=== PATIENT | female | born 1930 | race Caucasian/White ===

== ENCOUNTER 2017-10-31 17:40 | Inpatient (IN) | payer MEDICARE ==
[~2017-10-31] VITALS: Ht 149.8 cm; Wt 62.1 kg
--- NOTE | ~2017-10-31 | PR ---
[place], [place] PROGRESS NOTE [id number] UNIT #: [id number] ROOM: 311 DOCTOR: KERMIT NGUYỄN MD BIRTHDATE: [birth year] DOS: 11/05/2017 CHIEF COMPLAINT: "Oh Hi, Thanks for coming." SUMMARY OF THE VISIT: The patient was interviewed as she rested in bed. She awoke easily and engaged readily in superficial bright conversation. She reported no problems. She was at times rather short with her responses, but not necessarily nasty. She seems to be improving and tolerating the medication regimen well. MENTAL STATUS: She is alert and oriented with time gaps. Mood seems trending towards euthymia. Affect is more appropriate. There is no diallo or hypomania. There are no overt auditory or visual hallucinations. There is no delusions or paranoia. Short-term memory is exceedingly poor. PLAN: I will maintain her current psychotropic regimen, support and monitor, engage in individual and hendricks milieu therapy, returning then to the least restrictive environment when stable. KERMIT NGUYỄN MD CM:PNTRANS [phone] KERMIT NGUYỄN MD 11/05/172146 interface
--- NOTE | ~2017-10-31 | PR ---
[place], [place] PROGRESS NOTE NAME: OPHELIA LU UNIT #: [id number] ROOM: 311 DOCTOR: KERMIT NGUYỄN MD BIRTHDATE: [birth year] DOS: 11/03/2017 CHIEF COMPLAINT: "Oh honey I love it here. Thank you for everything you are doing." SUMMARY OF THE VISIT: The patient was interviewed as she sat in the dining area. She was pleasant and bright upon approach. She has been in general bright and pleasant during the morning, but nurses report a totally different person in the late afternoon beginning of the evening, she becomes increasingly more volatile, irritable and profane and was verbally abusive to staff, threatening them and refusing to take her medications. MENTAL STATUS: She is alert and oriented to person, possibly place, but not time. Mood this morning was fairly euthymic. Affect appropriate. No diallo or hypomania or psychosis is noted. She does process slowly and short term memory is poor. PLAN: Her valproic acid level is low therapeutic at 64.9. I will go ahead and change the time of the Depakote, though and move the 500 mg sprinkles from bedtime to 1800. I will increase Namenda from 5 mg b.i.d. to 10 mg in the morning and 5 mg at bedtime, engage in individual and hendricks milieu activity, returning then to the least restrictive environment when stable. KERMIT NGUYỄN MD CM:PNTRANS 2 3 KERMIT NGUYỄN MD 11/03/17933 interface
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
--- NOTE | ~2017-10-31 | PR ---
[place], [place] PROGRESS NOTE NAME: OPHELIA LU UNIT #: [id number] ROOM: 311 DOCTOR: KERMIT NGUYỄN MD BIRTHDATE: [birth year] DOS: 11/06/2017 CHIEF COMPLAINT: "No, I do not want any breakfast." SUMMARY OF THE VISIT: The patient was interviewed as she rested in bed. She seemed very somnolent at first, but did awake with very little prompting. She reported that she did not feel like getting up that she was still tired and she did not want breakfast. Nurses report that she has been a little bit more sluggish and somnolence of late and has had some issues with diarrhea. MENTAL STATUS: She is alert and oriented to person, place, but not necessarily time. Mood does seem to be trending towards euthymia. Affect is more appropriate. There is no diallo or hypomania. There are no auditory or visual hallucinations. No delusions, no paranoia. Short term memory remains poor. PLAN: I will check a comprehensive metabolic panel today. I will also check a valproic acid level in the a.m. to ensure that it is therapeutic and is not drifted too high. We will continue to engage in individual and hendricks milieu activities, returning to the least restrictive environment when psychiatrically stable. KERMIT NGUYỄN MD CM:PNTRANS [id number] KERMIT NGUYỄN MD 11/06/17 0939 interface
--- NOTE | ~2017-10-31 | DS ---
[place], [place] DISCHARGE SUMMARY [id number] UN[facility] #: [id number] ROOM: 311 DOCTOR: KERMIT NGUYỄN MD BIRTHDATE: [birth year] DOS: 11/06/2017 CHIEF COMPLAINT: "I don't know why I was sent here, I guess I have been bad." HISTORY OF PRESENT ILLNESS: This is an 87-year-old white female known to me from her stay at the [facility], an assisted living facility, where she has resided on their memory care unit. The patient has become increasingly verbally and physically aggressive there. She has been hitting, kicking and has been combative, both with staff and recently with residents. Her behavior has become problematic. Attempts to redirect her and adjust her medicines have not been successful and she has put herself and other residents at significant risk. She was admitted now to rule out any organic factors, to stabilize on medication, to engage in individual and hendricks milieu returning then to the least restrictive environment when stable. PAST MEDICAL HISTORY: Remarkable for coronary artery disease, hypertension, hyperlipidemia, peripheral neuropathy, diabetes, history of a CABG and a right mastectomy. SUMMARY OF HOSPITAL COURSE: The patient was admitted to the unit where she was started on Exelon patch and the dose was increased from 4.6 to 9.5 and ultimately to 13.3 mg daily. Namenda was started at 5 mg a day and it too was gradually increased to its maximum dose of 10 mg twice a day, Lexapro was discontinued having felt that this was not necessary at this time. Given the fact that she was having significant mood lability at the time, she was started on Depakote and tolerated the Depakote extremely well. This did give her significant benefit in that it stopped her mood lability. She was neither verbally or physically aggressive and was ready to be discharged; however, the patient was developing some issues with diarrhea and I was set to check comprehensive metabolic panel and valproic acid level. Shortly, thereafter, the patient began to complain of significant chest pain and also had an irregular heartbeat. The hospitalists were consulted and they felt at this point, she needed to be discharged and admitted to the medical floor as soon as possible. MENTAL STATUS AT DISCHARGE: The patient was alert and oriented to person, possibly place, not time. Mood was significantly trending towards euthymia. Affect was more appropriate. There was no hypomania or diallo. There were no auditory or visual hallucinations. No delusions, no paranoia. Short term memory had gaps, otherwise she was intact. FINAL DIAGNOSIS AT DISCHARGE: Intermittent explosive disorder and Alzheimer dementia. DISPOSITION: The patient will be under the care of the hospitalist for her medical issues, they can consult me if need be, although the patient was almost ready for discharge back into the assisted living facility. [place], [place] DISCHARGE SUMMARY NAME: OPHELIA LU UNIT #: [id number] ROOM: [facility] DOCTOR: KERMIT NGUYỄN MD BIRTHDATE: [birth year] KERMIT NGUYỄN MD CM:DISCHARG [id number] KERMIT NGUYỄN MD 11/06/17 0946 interface
--- NOTE | ~2017-10-31 | PR ---
[place], [place] PROGRESS NOTE NAME: OPHELIA LU UNIT #: [id number] ROOM: 311 DOCTOR: KERMIT NGUYỄN MD BIRTHDATE: [birth year] DOS: 11/04/2017 CHIEF COMPLAINT: "Oh yes, I would like to be helped down for breakfast." SUMMARY OF THE VISIT: The patient was interviewed as she was resting quietly in bed. As I approached her, she engaged readily in conversation. I did offer to help her come down for breakfast and she acknowledge me and said she would like to do that. Of note, the aides had tried on 3 separate occasions to get her down to breakfast and all 3 occasions she refused them stating she would rather leave here than have breakfast and she did not know why she was here. Nurses report she continues to have episodic bouts of agitation and aggression, but overall there is a trend in improvement and she does seem to redirect more readily. MENTAL STATUS: She is alert and oriented to person. She does realize she is in the hospital, but not where and she is certainly not oriented to place. Mood does still seem to be labile, but improving. There is no gross psychosis. Short term memory remains poor. PLAN: I will go ahead and increase her Namenda to its maximum dose of 10 mg b.i.d., continue to support and monitor, engage in individual and hendricks milieu activity, returning home when stable. KERMIT NGUYỄN MD CM:PNTRANS [phone] [id number] KERMIT NGUYỄN MD 11/04/17 0922 interface
--- NOTE | ~2017-10-31 | PR ---
[place], [place] PROGRESS NOTE [id number] UNIT #: [id number] ROOM: 309 DOCTOR: KERMIT NGUYỄN MD BIRTHDATE: [birth year] DOS: 11/02/2017 CHIEF COMPLAINT: "Oh, good morning honey, how are you?" SUMMARY OF THE VISIT: The patient was interviewed as she was ambulating into the dining room and I followed her in there and helped us find a seat. She was bright and pleasant and smiled readily. She was confused, however, and could not tell me how long she has been here, nor does she remember the name of the place. Nurses report that overall she has been much more pleasant and cooperative. There have been limited outbursts. She is tolerating the current medication regimen well. MENTAL STATUS: She is alert and oriented to person, not to place or time. Mood seems fairly euthymic. Affect appropriate. There are no symptoms of diallo or hypomania. There are no overt auditory or visual hallucinations. No delusions, no paranoia. Short term memory is exceedingly poor. PLAN: I will increase the Namenda from 5 mg a day to 5 mg twice a day with a target dose of 10 mg twice a day in mind. I will maximize out the Exelon patch from 9.5 to 13.3 mg daily and check a valproic acid level in the morning to ensure that it is therapeutic, engage in individual and hendricks milieu activity, returning to the least restrictive environment when psychiatrically stable. KERMIT NGUYỄN MD CM:PNTRANS 8 KERMIT NGUYỄN MD 11/02/17938 interface
[2017-10-31] MEDS ORDERED: VITAMIN D-32000 UNIT PO (18:12)
[2017-10-31] MEDS ORDERED: LANTUS SOL100 UNIT/1 SC (18:13)
[2017-10-31] MEDS ORDERED: HUMALOG100 UNIT/2 SQ (18:14)
[2017-10-31] MEDS ORDERED: CALCIUM CARB500 MG PO (18:15)
[2017-10-31] MEDS ORDERED: ATIVAN0.5 MG PO (18:16)
[2017-10-31] MEDS ORDERED: ASPIR LOW81 MG PO (18:17)
[2017-10-31] MEDS ORDERED: MAXITROL OPHTH3.5 GM OS (18:17)
[2017-10-31] MEDS ORDERED: CYMBALTA60 MG PO (18:18)
[2017-10-31] MEDS ORDERED: FENOFIBRATE54 MG PO (18:19)
[2017-10-31] MEDS ORDERED: METFORMIN1000 MG PO (18:21)
[2017-10-31] MEDS ORDERED: OXYBUTYNIN5 MG PO (18:22)
[2017-10-31] MEDS ORDERED: LOPRESSOR25 MG PO (18:22)
[2017-10-31] MEDS ORDERED: MIRALAX POWDER17 G1 PO (18:23)
[2017-10-31] MEDS ORDERED: GABAPENTIN100 M2 PO (18:25)
[2017-10-31] MEDS ORDERED: NEURONTIN300 MG PO (18:25)
[2017-10-31 20:00] VITALS: BP 167/85
[2017-10-31 20:15] VITALS: BP 167/85
[2017-10-31] MEDS ORDERED: CEPHALEXIN500 M1 PO (22:55)
[2017-10-31] MEDS ORDERED: VITAMIN D50000 UNIT PO (22:58)
[2017-10-31] MEDS ORDERED: LEXAPRO5 M1 PO (23:13)
[2017-11-01 06:00] VITALS: BP 127/64
[2017-11-01 07:01] LABS: BASO % 0.4 % (0.0-1.0); EOS # 0.2 10*3/uL (0.0-0.4); EOS % 2.8 % (1.0-4.0); HEMATOCRIT 46.3 % (37.0-47.0); HEMOGLOBIN 14.4 g/dl (12.0-16.0); LYMPH # 2.1 10*3/uL (1.3-4.4); LYMPH % 26.6 % (27.0-41.0); MEAN CELL VOLUME 89.7 fl (81.0-99.0); MEAN CORPUSCULAR HGB 27.9 pg (27.0-31.0); MEAN CORPUSCULAR HGB CONC 31.1 g/dl (33.0-37.0); MEAN PLATELET VOLUME 13.1 fl (9.6-12.3); MONO # 0.5 10*3/uL (0.1-1.0); MONO % 6.1 % (3.0-9.0); PLATELET COUNT AUTOMATED 214 10*3/uL (130-400); RED BLOOD COUNT 5.16 10*6/uL (4.10-5.10); RED CELL DISTRI WIDTH 14.7 % (0-14.5); WHITE BLOOD COUNT 7.9 10*3/uL (4.8-10.8)
[2017-11-01 07:28] VITALS: BP 107/65
[2017-11-01 07:30] LABS: ALBUMIN 3.5 gm/dl (3.1-4.5); ALKALINE PHOSPHATASE 52 U/L (45-117); BUN 23 mg/dl (7-24); CHLORIDE 99 mmol/L (98-107); CHOLESTEROL 248 mg/dL (<200); CREATININE 1.02 mg/dL (0.55-1.02); HDL CHOLESTEROL 58 mg/dl (40-60); LDL CHOLESTEROL 165 mg/dL (9-159); POTASSIUM 4.3 mmol/L (3.5-5.1); SGOT/AST 16 IU/L (3-35); SGPT/ALT 18 U/L (12-78); SODIUM 140 mmol/L (136-145); TOTAL PROTEIN 7.4 gm/dL (6.4-8.2); TRIGLYCERIDES 124 mg/dl (<150); VLDL CHOLESTEROL 25 mg/dL (6-40)
[2017-11-01 12:18] LABS: VITAMIN D, 25-HYDROXY 35.2 ng/mL (30-100)
[2017-11-02 07:34] VITALS: BP 110/74
[2017-11-02 13:45] VITALS: BP 100/62
[2017-11-02 17:19] VITALS: BP 133/88
[2017-11-02 20:48] VITALS: BP 110/70
[2017-11-03 06:30] VITALS: BP 100/70
[2017-11-03 07:41] VITALS: BP 108/74
[2017-11-03 08:12] LABS: BILIRUBIN NEGATIVE (NEGATIVE); BLOOD NEGATIVE (NEGATIVE); CLARITY CLEAR (CLEAR); COLOR YELLOW (YELLOW); GLUCOSE NEGATIVE (NEGATIVE); KETONE NEGATIVE (NEGATIVE); LEUKO ESTERASE NEGATIVE (NEGATIVE); NITRITE NEGATIVE (NEGATIVE); SPECIFIC GRAVITY <= 1.005 (1.005-1.030)
[2017-11-03 08:36] LABS: BACTERIA 1+; WBC 0-2 wbc/hpf (0-5)
[2017-11-03 13:30] VITALS: BP 102/60
[2017-11-03 15:05] LABS: NEURONTIN (GABAPENTIN) 9.7 ug/mL (4.0-16.0)
[2017-11-03 17:35] VITALS: BP 128/78
[2017-11-04 08:12] VITALS: BP 125/73
[2017-11-04 20:00] VITALS: BP 121/80
[2017-11-05 08:00] VITALS: BP 112/78
[2017-11-05 20:00] VITALS: BP 115/67
[2017-11-06 09:06] VITALS: BP 118/64
[2017-11-06] MEDS ORDERED: DIVALPROEX SOD125 M1 PO ×2 (09:18)
[2017-11-06] MEDS ORDERED: EXELON13.3 MG/21 T (09:18)
[2017-11-06] MEDS ORDERED: MEMANTINE HCL10 MG PO (09:18)
== END 2017-11-06 09:40 | disposition short-term general hospital (02) | DRG 883 ==
LOC: 3N 17:40
PROVIDERS: Psychiatry & Neurology Psychiatry
DX: F63.81 Intermittent explosive disorder (principal); E11.42 Type 2 diabetes mellitus with diabetic polyneuropathy; G30.9 Alzheimer's disease, unspecified; F02.80 Dementia in other diseases classified elsewhere, unspecified severity, without behavioral disturbance, psychotic disturbance, mood disturbance, and anxiety; F33.9 Major depressive disorder, recurrent, unspecified; F23 Brief psychotic disorder; I25.10 Atherosclerotic heart disease of native coronary artery without angina pectoris; E78.5 Hyperlipidemia, unspecified; I10 Essential (primary) hypertension; E78.2 Mixed hyperlipidemia; Z95.1 Presence of aortocoronary bypass graft; Z90.11 Acquired absence of right breast and nipple; Z79.4 Long term (current) use of insulin; Z87.891 Personal history of nicotine dependence; Z90.710 Acquired absence of both cervix and uterus; Z95.2 Presence of prosthetic heart valve; Z88.0 Allergy status to penicillin; Z88.8 Allergy status to other drugs, medicaments and biological substances; Z79.82 Long term (current) use of aspirin; Z79.84 Long term (current) use of oral hypoglycemic drugs

== ENCOUNTER 2017-11-06 09:50 | Inpatient (IN) | payer MEDICARE ==
[~2017-11-06] VITALS: Ht 163 cm; Wt 63.0 kg
--- NOTE | ~2017-11-06 | CON ---
[place], [place] REPORT OF CONSULTATION NAME: OPHELIA LU UNIT #: [id number] ROOM: 524 DOCTOR: KERMIT NGUYỄN MD BIRTHDATE: [birth year] DOS: 11/08/2017 CHIEF COMPLAINT: "I ate a good lunch. I am hoping I can go home today." HISTORY OF PRESENT ILLNESS: This is an 87-year-old white female known to me from her stay at the [facility] as well as the stay at the [facility]. 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 She was subsequently transferred off the U to the medical floor for further monitoring and evaluation. From a psychiatric standpoint, the patient had been significantly trending towards improvement and her outbursts and agitation were becoming less and less frequent and less intense. PAST MEDICAL HISTORY: Remarkable for coronary artery disease, hypertension, hyperlipidemia, neuropathy, diabetes, history of right mastectomy. MENTAL STATUS: The patient is alert and oriented to person, possibly place, but not time. Mood does seem to be fairly euthymic and she joked with me and engaged readily in conversation. There was no hypomania or diallo. There were no overt auditory or visual hallucinations. No delusions, no paranoia. She does process at times slowly and at times exhibits short term memory issues, but overall, there has been a trend in improvement. DIAGNOSES: Intermittent explosive disorder and Alzheimer's dementia. PLAN: At this point, I see no reason to make any medication adjustments as she does seem to have improved. From my standpoint, she can be discharged directly back to [facility] when medically stable. KERMIT NGUYỄN MD CM:CONSTR:REPORT OF CONSULTATION 1311 11/08/17 1319 interface
[2017-11-06 09:45] VITALS: BP 152/98
[2017-11-06 09:50] VITALS: BP 152/98
[~2017-11-06 09:50] MED LIST: ASPIR LOW81 MG PO; ATIVAN0.5 MG PO; CALCIUM CARB500 MG PO; CEPHALEXIN500 M1 PO; CYMBALTA60 MG PO; DIVALPROEX SOD125 M1 PO; EXELON13.3 MG/21 T; FENOFIBRATE54 MG PO; GABAPENTIN100 M2 PO; HUMALOG100 UNIT/2 SQ; LANTUS SOL100 UNIT/1 SC; LEXAPRO5 M1 PO; LOPRESSOR25 MG PO; MAXITROL OPHTH3.5 GM OS; MEMANTINE HCL10 MG PO; METFORMIN1000 MG PO; MIRALAX POWDER17 G1 PO; NEURONTIN300 MG PO; OXYBUTYNIN5 MG PO; VITAMIN D-32000 UNIT PO; VITAMIN D50000 UNIT PO
[2017-11-06 13:26] LABS: BASO % 0.1 % (0.0-1.0); HEMATOCRIT 45.1 % (37.0-47.0); HEMOGLOBIN 14.2 g/dl (12.0-16.0); LYMPH # 0.8 10*3/uL (1.3-4.4); LYMPH % 10.6 % (27.0-41.0); MEAN CORPUSCULAR HGB 28.3 pg (27.0-31.0); MEAN CORPUSCULAR HGB CONC 31.5 g/dl (33.0-37.0); MONO # 0.3 10*3/uL (0.1-1.0); MONO % 3.4 % (3.0-9.0); NEUT # 6.3 10*3/uL (2.3-7.9); NEUT % 84.6 % (47.0-73.0); PLATELET COUNT AUTOMATED 181 10*3/uL (130-400); RED BLOOD COUNT 5.01 10*6/uL (4.10-5.10); RED CELL DISTRI WIDTH 14.7 % (0-14.5); WHITE BLOOD COUNT 7.4 10*3/uL (4.8-10.8)
[2017-11-06 13:35] LABS: ACT PARTIAL THROMBO TIME 22.6 SECONDS (20.8-31.5)
[2017-11-06 13:45] LABS: ALBUMIN 3.3 gm/dl (3.1-4.5); CREATININE 1.2 mg/dL (0.55-1.02); POTASSIUM 4.5 mmol/L (3.5-5.1); TOTAL PROTEIN 6.9 gm/dL (6.4-8.2)
[2017-11-06 13:54] LABS: VALPROIC ACID (DEPAKENE) 61.2 ug/ml (50-100)
[2017-11-06 16:00] VITALS: BP 148/82
[2017-11-06 20:00] VITALS: BP 110/53
[2017-11-07] VITALS: BP 110/54
[2017-11-07 06:59] LABS: BASO % 0.7 % (0.0-1.0); EOS # 0.1 10*3/uL (0.0-0.4); EOS % 1.3 % (1.0-4.0); HEMATOCRIT 41.4 % (37.0-47.0); HEMOGLOBIN 12.8 g/dl (12.0-16.0); LYMPH # 1.5 10*3/uL (1.3-4.4); MEAN CELL VOLUME 91.2 fl (81.0-99.0); MEAN CORPUSCULAR HGB 28.2 pg (27.0-31.0); MEAN CORPUSCULAR HGB CONC 30.9 g/dl (33.0-37.0); MEAN PLATELET VOLUME 12.8 fl (9.6-12.3); MONO # 0.6 10*3/uL (0.1-1.0); MONO % 10.2 % (3.0-9.0); NEUT # 3.4 10*3/uL (2.3-7.9); NEUT % 60.2 % (47.0-73.0); PLATELET COUNT AUTOMATED 167 10*3/uL (130-400); RED BLOOD COUNT 4.54 10*6/uL (4.10-5.10); RED CELL DISTRI WIDTH 14.6 % (0-14.5); WHITE BLOOD COUNT 5.6 10*3/uL (4.8-10.8)
[2017-11-07 07:32] LABS: ALKALINE PHOSPHATASE 42 U/L (45-117); BUN 31 mg/dl (7-24); CHLORIDE 102 mmol/L (98-107); CREATININE 0.98 mg/dL (0.55-1.02); PHOSPHOROUS 2.7 mg/dL (2.5-4.9); POTASSIUM 3.7 mmol/L (3.5-5.1); SGOT/AST 16 IU/L (3-35); SGPT/ALT 18 U/L (12-78); SODIUM 140 mmol/L (136-145); TOTAL PROTEIN 6.1 gm/dL (6.4-8.2)
[2017-11-07 07:35] LABS: ACT PARTIAL THROMBO TIME 22.6 SECONDS (20.8-31.5)
[2017-11-07 08:00] VITALS: BP 112/68
[2017-11-07 16:00] VITALS: BP 124/62
[2017-11-07 18:32] LABS: BILIRUBIN NEGATIVE (NEGATIVE); BLOOD NEGATIVE (NEGATIVE); CLARITY CLEAR (CLEAR); COLOR YELLOW (YELLOW); GLUCOSE 1+ (NEGATIVE); KETONE TRACE (NEGATIVE); LEUKO ESTERASE NEGATIVE (NEGATIVE); NITRITE NEGATIVE (NEGATIVE); PH 5.5 (5.0-9.0); UROBILINOGEN 0.2 E.U./dl (0.2-1.0)
[2017-11-07 18:46] LABS: RBC 0-2 rbc/hpf (0-2)
[2017-11-08] VITALS: BP 98/48
[2017-11-08 08:40] VITALS: BP 148/77
[2017-11-08 08:52] LABS: BASO % 0.2 % (0.0-1.0); EOS # 0.1 10*3/uL (0.0-0.4); EOS % 1.5 % (1.0-4.0); HEMATOCRIT 40.4 % (37.0-47.0); HEMOGLOBIN 12.7 g/dl (12.0-16.0); LYMPH # 1.5 10*3/uL (1.3-4.4); LYMPH % 18.1 % (27.0-41.0); MEAN CELL VOLUME 89.8 fl (81.0-99.0); MEAN CORPUSCULAR HGB 28.2 pg (27.0-31.0); MEAN CORPUSCULAR HGB CONC 31.4 g/dl (33.0-37.0); MEAN PLATELET VOLUME 12.3 fl (9.6-12.3); MONO # 0.6 10*3/uL (0.1-1.0); MONO % 7.8 % (3.0-9.0); NEUT # 5.7 10*3/uL (2.3-7.9); PLATELET COUNT AUTOMATED 162 10*3/uL (130-400); RED CELL DISTRI WIDTH 14.4 % (0-14.5); WHITE BLOOD COUNT 8.1 10*3/uL (4.8-10.8)
[2017-11-08 09:10] LABS: ALBUMIN 2.9 gm/dl (3.1-4.5); ALKALINE PHOSPHATASE 45 U/L (45-117); BUN 26 mg/dl (7-24); CHLORIDE 102 mmol/L (98-107); CREATININE 1.02 mg/dL (0.55-1.02); POTASSIUM 3.8 mmol/L (3.5-5.1); SGOT/AST 15 IU/L (3-35); SGPT/ALT 18 U/L (12-78); SODIUM 140 mmol/L (136-145)
[2017-11-08 09:11] LABS: TROPONIN I < 0.015 ng/ml (<0.045)
[2017-11-08 16:00] VITALS: BP 124/83
[2017-11-08 20:00] VITALS: BP 148/64
[2017-11-09] VITALS: BP 123/84
[2017-11-09 08:00] VITALS: BP 118/58
[2017-11-09 16:00] VITALS: BP 136/83
[2017-11-10] VITALS: BP 98/69
[2017-11-10 08:00] VITALS: BP 103/59
[2017-11-10] MEDS ORDERED: ATIVAN0.5 MG PO (14:21)
[2017-11-10] MEDS ORDERED: RIVASTIGMINE TAR6 M1 PO (14:22)
== END 2017-11-10 14:30 | disposition home or self-care (01) | DRG 309 ==
LOC: 5E 09:50
PROVIDERS: Internal Medicine
DX: I44.1 Atrioventricular block, second degree (principal); E44.0 Moderate protein-calorie malnutrition; E11.42 Type 2 diabetes mellitus with diabetic polyneuropathy; E87.2 Acidosis; E11.649 Type 2 diabetes mellitus with hypoglycemia without coma; F02.81 Dementia in other diseases classified elsewhere, unspecified severity, with behavioral disturbance; R11.2 Nausea with vomiting, unspecified; E11.65 Type 2 diabetes mellitus with hyperglycemia; G30.9 Alzheimer's disease, unspecified; I10 Essential (primary) hypertension; I25.10 Atherosclerotic heart disease of native coronary artery without angina pectoris; F63.81 Intermittent explosive disorder; E78.2 Mixed hyperlipidemia; E86.0 Dehydration; Z66 Do not resuscitate; Z51.5 Encounter for palliative care; Z90.11 Acquired absence of right breast and nipple; Z90.710 Acquired absence of both cervix and uterus; Z95.1 Presence of aortocoronary bypass graft; Z79.4 Long term (current) use of insulin; Z87.891 Personal history of nicotine dependence; Z88.0 Allergy status to penicillin; Z88.8 Allergy status to other drugs, medicaments and biological substances; Z79.82 Long term (current) use of aspirin; Z79.899 Other long term (current) drug therapy; Z68.23 Body mass index [BMI] 23.0-23.9, adult; I25.2 Old myocardial infarction

== ENCOUNTER 2017-12-07 04:52 | Inpatient (IN) | payer MEDICARE ==
[~2017-12-07] VITALS: Ht 157.4 cm; Wt 67.6 kg
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
--- NOTE | ~2017-12-07 | PR ---
[place], [place] PROGRESS NOTE NAME: OPHELIA LU UNIT #: [id number] ROOM: 317 DOCTOR: KERMIT NGUYỄN MD BIRTHDATE: [birth year] DOS: 12/11/2017 CHIEF COMPLAINT: "Do I get to go home soon?" SUMMARY OF THE VISIT: The patient was interviewed as she was sitting in the dining area. She was getting your blood pressure checked by one of the nurses. She was cooperative and pleasant. She engaged readily in conversation with me and smiled as I approached. She reports that she is feeling well and is anxious to be able to go home. When I told her that it would be happening soon, she smiled. She was pleasant for the most part. Nurses report that there has been a significant trend towards improvement. She has not exhibited severe mood lability or agitation, has been sleeping well and eating well. MENTAL STATUS: She is alert and oriented to person, possibly place, not time. Mood does seem to be trending towards euthymia. Affect is more appropriate. There is no diallo or hypomania. There are no auditory or visual hallucinations. She does process slowly at times and short term memory remains poor. PLAN: I will go ahead and increase her Exelon patch from 4.6 mg daily to 9 mg daily, continue Namenda, continue low dose Risperdal at night, continue to engage in individual and hendricks milieu activity with the plan to return to the least restrictive environment when psychiatrically stable. KERMIT NGUYỄN MD CM:PNTRANS [phone] KERMIT NGUYỄN MD 12/11/17 1050 interface
--- NOTE | ~2017-12-07 | PR ---
[place], [place] PROGRESS NOTE NAME: OPHELIA LU UNIT #: [id number] ROOM: 317 DOCTOR: KERMIT NGUYỄN MD BIRTHDATE: [birth year] DOS: 12/13/2017 CHIEF COMPLAINT: "I'd like some coffee and cream please." SUMMARY OF THE VISIT: The patient was interviewed as she reclined in a Linh chair watching television in the dining area. She was somewhat somnolent, but did awake. She did receive a p.r.n. yet again last evening. These p.r.n. seem to leave residual somnolence to the point where she is very hard to arouse and engage in the morning hours. MENTAL STATUS: The patient remains alert and oriented to self. It is unclear if she realizes she is in the hospital. She is certainly not oriented to time. She was pleasant and bright however, very somnolent. There was no agitation noted this morning. No hypomania or diallo and no gross psychosis. Short term memory remains exceedingly poor. PLAN: In an order to better ascertain how her current medicines are working, I will discontinue her Geodon p.r.n., discontinue her intramuscular Ativan p.r.n. and lower her Ativan oral p.r.n. to 0.5 mg every 4 hours as needed. By limiting the PRNs, I am hopeful to be able to see what her current straight medications are doing for her and be able then to adjust them accordingly if needed. We will engage in individual and hendricks milieu activity, returning then to the least restrictive environment when psychiatrically stable. KERMIT NGUYỄN MD CM:PNTRANS 1021 [id number] KERMIT NGUYỄN MD 12/13/17 1039 interface
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
--- NOTE | ~2017-12-07 | PR ---
[place], [place] PROGRESS NOTE NAME: OPHELIA LU UNIT #: [id number] ROOM: 317 DOCTOR: KERMIT NGUYỄN MD BIRTHDATE: [birth year] DOS: 12/14/2017 CHIEF COMPLAINT: "Am I going home soon." SUMMARY OF THE VISIT: The patient was interviewed in the dining area where she sat in a Linh chair awaiting breakfast. She was alert and actually engaged in good eye contact and was able to carry on a reasonable conversation this morning. She voiced no complaints, stating that she is feeling better, sleeping well, eating well. When I did discuss with her that she might be going home tomorrow, she had a very big smile on her face and thanked me for helping her. There was no agitation, no aggression, no mood lability noted. MENTAL STATUS: She is alert and oriented to person, possibly place and that she might know she is in the hospital, but certainly not time. She does seem to be more euthymic and more engaging. There is no agitation or aggression. No hypomania or diallo. No auditory or visual hallucinations, delusions or paranoia. She still processes at times slowly and short term memory has significant gaps. PLAN: I will maintain her current psychotropic regimen, continue to engage in individual and hendricks milieu activity with the ultimate plan to return back to [facility] when psychiatrically stable. KERMIT NGUYỄN MD CM:PNTRANS [phone] KERMIT NGUYỄN MD 12/14/17 0955 interface
--- NOTE | ~2017-12-07 | PR ---
[place], [place] PROGRESS NOTE [id number] UNIT #: [id number] ROOM: 317 DOCTOR: SHAD VARGHESE MD BIRTHDATE: [birth year] DOS: 12/10/2017 SUBJECTIVE: The patient seen and spoke with the staff. Per staff, the patient is doing much better, more alert. No behavioral problems or issues. The patient was in the Day Area and Linh chair. She reports doing well, not in any distress. Medication compliant, did not have any side effect from the medication. MENTAL STATUS EXAMINATION: Pleasant, cooperative. Described her mood as "okay." Affect, mood congruent. Thought processes with confabulation. She denied auditory or visual hallucination. No delusion or paranoia noted. She denied suicidal ideation, intent or plan. She also denied homicidal ideation, intent or plan. PLAN: 1. Continue current medication and care. 2. Continue redirection. 3. Supportive care. SHAD VARGHESE MD CM:PNTRANS [id number] [phone] SHAD VARGHESE MD 12/10/172257 interface
--- NOTE | ~2017-12-07 | DS ---
[place], [place] DISCHARGE SUMMARY [id number] UNIT #: [id number] ROOM: 317 DOCTOR: KERMIT NGUYỄN MD BIRTHDATE: [birth year] DOS: 12/15/2017 CHIEF COMPLAINT: "I would like breakfast and some coffee please." HISTORY OF PRESENT ILLNESS: This is an 87-year-old white female readmitted to the [facility] from the [facility]. The patient was initially sent here due to increased agitation and verbal and physical aggression. She was stabilized on medication and sent back to the [facility]. However, after approximately 2 weeks back at the [facility] this behavior began to reoccur and she began refusing her medications on a consistent basis. She was actively exit seeking and was very difficult to redirect. In fact, when she was redirected, she became verbally and physically aggressive towards staff. She was throwing things and hitting staff repeatedly. She was making threats to hurt other residents there. Because of her significant decline in mental status, it was felt that another [facility] evaluation and treatment was necessary. She was admitted to rule out then any organic factors, to stabilize on medication, to engage in individual and hendricks milieu activity, then returning to the least restrictive environment. PAST MEDICAL HISTORY: Remarkable for coronary artery disease, hypertension, hyperlipidemia, neuropathy, diabetes and a history of a right mastectomy. SUMMARY OF HOSPITAL COURSE: The patient was admitted to the hospital where she was maintained on her Namenda 10 mg twice daily. She was restarted on Exelon patch, which was discontinued at some point, 4.6 mg a day was started and it was rapidly increased to its maximum dose of 13.3 mg. The patient was started on Risperdal M-Tab 1 mg twice daily and her Depakote was discontinued because it was ineffective and she was refusing the large pills in the Sprinkles even. She was initially somewhat somnolent on the higher dose of Risperdal, so the dose was lowered to 0.5 mg twice daily. The patient did seem to do well with the Risperdal. Staff did notice that she tended to sundown and her behavior worsened around 2:00 or 3:00 in the afternoon. The dose of the Risperdal then was shifted to 0.5 mg at 2 p.m. and 0.5 mg at bedtime with excellent results. With the use of these medications, the patient became much more compliant. She engaged readily in individual and hendricks milieu activities. She slept well. She ate well. She was not verbally or physically abusive. She tolerated the medication well without sedation, somnolence, extrapyramidal symptoms or tardive dyskinesia. She was discharged then back to the [facility] for further treatment. MENTAL STATUS AT DISCHARGE: The patient is alert and oriented to self. It is unclear if she realizes she is at [facility]. She is certainly not oriented to time. Mood does seem to be more euthymic. Affect is more appropriate. There is no diallo or hypomania. There are no overt auditory or visual hallucinations, delusions or paranoia. Short-term memory is exceedingly poor, otherwise she is intact. FINAL DIAGNOSES: Intermittent explosive disorder and major depression, recurrent with psychotic features and Alzheimer's dementia. PLAN: The patient is to return to the [facility]. All of her [place], [place] DISCHARGE SUMMARY NAME: OPHELIA LU UNIT #: [id number] ROOM: 317 DOCTOR: KERMIT NGUYỄN MD BIRTHDATE: [birth year] prescriptions have been printed and will be sent with her. I will follow her upon her return there. Medically, psychiatrically, she is stable. The [facility] is anxious to have her back and happy to work with her once again. KERMIT NGUYỄN MD CM:DISCHARG [id number] KERMIT NGUYỄN MD 12/15/17 1043 interface
--- NOTE | ~2017-12-07 | PR ---
[place], [place] PROGRESS NOTE NAME: OPHELIA LU UNIT #: [id number] ROOM: 317 DOCTOR: SHAD VARGHESE MD BIRTHDATE: [birth year] DOS: 12/09/2017 SUBJECTIVE: The patient seen and spoke with the staff. Per staff, patient was too sedated after her Risperdal was increased. No behavior problems or issues. She has been sleeping all night and this morning. The patient was in the day area. She was . When I called her name, she barely opened her eyes and said that she is doing okay. Unable to answer any of my questions. MENTAL STATUS EXAMINATION: Pleasant, cooperative. Describes her mood as "okay." Affect is sedated, not able to do the full mental status examination as she was sleeping. PLAN: 1. I will discontinue the a.m. Risperdal. 2. Continue other medication. 3. Continue redirection. 4. Supportive care. SHAD VARGHESE MD CM:PNTRANS [id number] SHAD VARGHESE MD 12/10/173 interface
[~2017-12-07 04:52] MED LIST changes: +RIVASTIGMINE TAR6 M1 PO
[2017-12-07] MEDS ORDERED: ATIVAN0.5 MG PO (05:16)
[2017-12-07] MEDS ORDERED: DEPAKOTE250 MG PO ×2 (05:17→05:22)
[2017-12-07] MEDS ORDERED: ZOFRAN4 MG PO (05:20)
[2017-12-07] MEDS ORDERED: OMEPRAZOLE40 MG PO (05:21)
[2017-12-07] MEDS ORDERED: ESCITALOPRAM OXA5 MG PO (05:23)
[2017-12-07] MEDS ORDERED: NEURONTIN300 MG PO (05:25)
[2017-12-07] MEDS ORDERED: HUMALOG100 UNIT/1 SQ ×2 (05:45→05:47)
[2017-12-07 10:26] VITALS: BP 150/81
[2017-12-07 20:04] VITALS: BP 106/62
[2017-12-08 07:14] LABS: BASO % 0.7 % (0.0-1.0); EOS # 0.2 10*3/uL (0.0-0.4); EOS % 3.5 % (1.0-4.0); HEMOGLOBIN 12.4 g/dl (12.0-16.0); LYMPH # 1.6 10*3/uL (1.3-4.4); LYMPH % 25.6 % (27.0-41.0); MEAN CELL VOLUME 93.7 fl (81.0-99.0); MEAN PLATELET VOLUME 12.8 fl (9.6-12.3); MONO # 0.7 10*3/uL (0.1-1.0); MONO % 10.7 % (3.0-9.0); NEUT # 3.5 10*3/uL (2.3-7.9); NEUT % 57.8 % (47.0-73.0); PLATELET COUNT AUTOMATED 182 10*3/uL (130-400); RED BLOOD COUNT 4.27 10*6/uL (4.10-5.10); RED CELL DISTRI WIDTH 15.3 % (0-14.5); WHITE BLOOD COUNT 6.1 10*3/uL (4.8-10.8)
[2017-12-08 07:37] LABS: POTASSIUM 4.2 mmol/L (3.5-5.1)
[2017-12-08 08:02] LABS: CREATININE 1.17 mg/dL (0.55-1.02); THYROID STIM HORMONE (HS) 4.02 uIU/ml (0.358-4.75); TOTAL PROTEIN 6.5 gm/dL (6.4-8.2)
[2017-12-08 08:47] VITALS: BP 121/66
[2017-12-08 08:54] LABS: VITAMIN D, 25-HYDROXY 30.2 ng/mL (30-100)
[2017-12-08 10:24] LABS: BILIRUBIN NEGATIVE (NEGATIVE); BLOOD TRACE-INTACT (NEGATIVE); CLARITY SL CLOUDY (CLEAR); COLOR YELLOW (YELLOW); GLUCOSE NEGATIVE (NEGATIVE); KETONE NEGATIVE (NEGATIVE); LEUKO ESTERASE 3+ (NEGATIVE); NITRITE NEGATIVE (NEGATIVE); SPECIFIC GRAVITY <= 1.005 (1.005-1.030); UROBILINOGEN 0.2 E.U./dl (0.2-1.0)
[2017-12-08 10:30] LABS: BACTERIA 3+; EPITHELIAL CELLS 21-30; MUCOUS 1+; WBC TNTC wbc/hpf (0-5)
[2017-12-08 20:00] VITALS: BP 112/64
[2017-12-09 09:01] VITALS: BP 106/68
[2017-12-09 12:37] VITALS: BP 102/70
[2017-12-09 20:00] VITALS: BP 112/65
[2017-12-10 07:58] VITALS: BP 119/67
[2017-12-10 20:17] VITALS: BP 111/60
[2017-12-11 08:30] VITALS: BP 90/70
[2017-12-11 20:00] VITALS: BP 135/75
[2017-12-12 08:08] VITALS: BP 121/62
[2017-12-12 20:00] VITALS: BP 120/60
[2017-12-13 08:09] VITALS: BP 118/64
[2017-12-13 20:56] VITALS: BP 116/62
[2017-12-14 20:06] VITALS: BP 121/72
[2017-12-15 07:46] VITALS: BP 120/72
[2017-12-15] MEDS ORDERED: EXELON13.3 MG/21 T (10:08)
[2017-12-15] MEDS ORDERED: MEMANTINE HCL10 MG PO (10:08)
[2017-12-15] MEDS ORDERED: RISPERIDONE0.5 MG PO (10:08)
[2017-12-15] MEDS ORDERED: MIRTAZAPINE15 M1 PO (10:08)
[2017-12-15] MEDS ORDERED: RISPERDAL M-TA0.5 MG BC (10:08)
[2017-12-15] MEDS ORDERED: OMEPRAZOLE D/R20 MG PO (13:31)
[2017-12-15] MEDS ORDERED: Vitamin D PO (13:31)
[2017-12-15] MEDS ORDERED: Insulin Lispro, Reco SC (13:31)
[2017-12-15] MEDS ORDERED: LOPRESSOR25 MG PO (13:31)
== END 2017-12-15 16:23 | disposition home or self-care (01) | DRG 883 ==
LOC: 3N 04:52
PROVIDERS: Psychiatry & Neurology Psychiatry
DX: F63.81 Intermittent explosive disorder (principal); E87.2 Acidosis; E44.0 Moderate protein-calorie malnutrition; E11.42 Type 2 diabetes mellitus with diabetic polyneuropathy; F33.3 Major depressive disorder, recurrent, severe with psychotic symptoms; E11.65 Type 2 diabetes mellitus with hyperglycemia; I44.1 Atrioventricular block, second degree; F02.81 Dementia in other diseases classified elsewhere, unspecified severity, with behavioral disturbance; I25.810 Atherosclerosis of coronary artery bypass graft(s) without angina pectoris; G30.9 Alzheimer's disease, unspecified; E16.2 Hypoglycemia, unspecified; E78.2 Mixed hyperlipidemia; E86.0 Dehydration; I10 Essential (primary) hypertension; Z66 Do not resuscitate; Z51.5 Encounter for palliative care; Z90.11 Acquired absence of right breast and nipple; Z79.4 Long term (current) use of insulin; Z79.899 Other long term (current) drug therapy; Z90.710 Acquired absence of both cervix and uterus; Z98.49 Cataract extraction status, unspecified eye; Z95.1 Presence of aortocoronary bypass graft; Z88.0 Allergy status to penicillin; Z88.8 Allergy status to other drugs, medicaments and biological substances; Z79.82 Long term (current) use of aspirin; Z68.27 Body mass index [BMI] 27.0-27.9, adult